=== PATIENT | male | born 1945 | race Caucasian/White ===

== ENCOUNTER 2024-05-22 12:36 | Emergency (ER) | payer OTHER ==
--- NOTE | 2024-05-22 13:09 | ED ---
General Adult HPI - General Chief complaint: Psychiatric Symptoms Stated complaint: Mental Health Time Seen by Provider: 05/22/24 12:41 Source: patient, EMS, RN notes reviewed Mode of arrival: EMS Limitations: no limitations - History of Present Illness Initial comments: Patient is an 78-year-old male present to the emergency department for mental health evaluation. Patient states he made a regretful statement when questioned if he had thoughts of self-harm at the nursing facility. Patient stated that he had the ability to do so secondary to having access to a fork and knife daily. Patient states he did not mean this to come across as a threat and does not have suicidal thoughts. No homicidal thoughts. No hallucinations. No new physical complaints. No alcohol or street drug use. - Related Data Home Medications Medication Instructions Recorded Confirmed ALPRAZolam [Xanax] 0.5 mg PO Q24H PRN 05/22/24 05/22/24 Acetaminophen Tab [Tylenol] 650 mg PO Q6H PRN MDD 3 grams 05/22/24 05/22/24 Acetaminophen [Tylenol] 650 mg PO BID MDD 3 gram 05/22/24 05/22/24 Albuterol Nebulized [Ventolin 2.5 mg INHALATION RT-Q6H PRN 05/22/24 05/22/24 Nebulized] Albuterol Sulfate [Albuterol 2 puff INHALATION RT-Q6H PRN 05/22/24 05/22/24 Sulfate Hfa] Atorvastatin Calcium [Lipitor] 40 mg PO HS 05/22/24 05/22/24 Cholecalciferol [Vitamin D3 (25 50 mcg PO DAILY 05/22/24 05/22/24 Mcg = 1000 Iu)] DULoxetine HCL [Cymbalta] 60 mg PO DAILY 05/22/24 05/22/24 Divalproex Sodium [Depakote] 500 mg PO BID 05/22/24 05/22/24 Ferrous Sulfate [Feosol] 325 mg PO DAILY 05/22/24 05/22/24 Finasteride [Proscar] 5 mg PO DAILY 05/22/24 05/22/24 Fluticasone/Umeclidin/Vilanter 1 puff INHALATION RT-DAILY 05/22/24 05/22/24 [Trelegy Ellipta 200-62.5-25] Furosemide [Lasix] 20 mg PO DAILY 05/22/24 05/22/24 Gabapentin [Neurontin] 400 mg PO HS 05/22/24 05/22/24 Isosorbide Mononitrate ER [Imdur] 30 mg PO DAILY 05/22/24 05/22/24 Magnesium Oxide [Mag-Ox] 400 mg PO DAILY 05/22/24 05/22/24 Melatonin 10 mg PO HS 05/22/24 05/22/24 Memantine [Namenda] 10 mg PO BID 05/22/24 05/22/24 Multivitamins, Thera [Multivitamin 1 tab PO DAILY 05/22/24 05/22/24 (formulary)] Psyllium Husk [Konsyl] 1 tsp PO BID 05/22/24 05/22/24 Sennosides/Docusate Sodium 1 tab PO BID 05/22/24 05/22/24 [Senna-S 8.6-50 mg Tablet] Tamsulosin HCl [Flomax] 0.8 mg PO PC-SUPPER 05/22/24 05/22/24 amLODIPine [Norvasc] 10 mg PO DAILY 05/22/24 05/22/24 bisacodyL [Dulcolax] 5 mg PO DAILY PRN 05/22/24 05/22/24 carvediloL [Coreg] 6.25 mg PO BID 05/22/24 05/22/24 levETIRAcetam [Keppra] 500 mg PO Q12HR 05/22/24 05/22/24 lisinopriL [Prinivil] 20 mg PO DAILY 05/22/24 05/22/24 rOPINIRole HCL [Requip] 3 mg PO BID 05/22/24 05/22/24 Allergies Allergy/AdvReac Type Severity Reaction Status Date / Time No Known Allergies Allergy Verified 05/22/24 13:41 Review of Systems ROS Statement: Those systems with pertinent positive or pertinent negative responses have been documented in the HPI. ROS Other: All systems not noted in ROS Statement are negative. Constitutional: Denies: fever Eyes: Denies: eye pain ENT: Denies: ear pain Respiratory: Denies: cough Cardiovascular: Denies: chest pain Endocrine: Denies: fatigue Gastrointestinal: Denies: abdominal pain Musculoskeletal: Denies: back pain Skin: Denies: rash Psychiatric: Reports: as per HPI Past Medical History Past Medical History: Dementia, Hyperlipidemia Past Surgical History: No Surgical Hx Reported Past Psychological History: Anxiety, Depression Smoking Status: Former smoker Past Alcohol Use History: None Reported Past Drug Use History: Marijuana General Exam Limitations: no limitations General appearance: alert, in no apparent distress Head exam: Present: normocephalic Eye exam: Present: normal appearance Neck exam: Present: normal inspection Respiratory exam: Present: normal lung sounds bilaterally Cardiovascular Exam: Present: regular rate, normal rhythm GI/Abdominal exam: Present: soft. Absent: tenderness Extremities exam: Present: normal inspection Neurological exam: Present: alert Psychiatric exam: Present: normal affect, normal mood Skin exam: Present: normal color Course Vital Signs 05/22/24 05/22/24 12:39 15:04 Temperature 97.5 F L Pulse Rate 51 L Respiratory 18 Rate Blood Pressure 212/80 197/81 O2 Sat by Pulse 98 Oximetry Medical Decision Making - Medical Decision Making Was pt. sent in by a medical professional or institution (, PA, [employer], urgent care, hospital, or half-way...) When possible be specific @ -Sent from half-way Did you speak to anyone other than the patient for history (EMS, parent, family, police, friend...)? What history was obtained from this source @ -No Did you review nursing and triage notes (agree or disagree)? Why? @ -I reviewed and agree with nursing and triage notes Were old charts reviewed (outside hosp., previous admission, EMS record, old EKG, old radiological studies, urgent care reports/EKG's, half-way records)? Report findings @ -No old charts were reviewed Differential Diagnosis (chest pain, altered mental status, abdominal pain women, abdominal pain men, vaginal bleeding, weakness, fever, dyspnea, syncope, headache, dizziness, GI bleed, back pain, seizure, CVA, palpatations, mental health, musculoskeletal)? @ -Differential Mental Health Depression, anxiety, bipolar, psychosis, schizophrenia, borderline personality, situational depression, adjustment disorder, behavioral disorder, brain tumor, malingering, substance abuse, encephalopathy, medication reaction, dementia, hypothyroidism, degenerative neurologic disorder, lupus.... This is not meant to be all-inclusive list EKG interpreted by me (3pts min.). @ -As above X-rays interpreted by me (1pt min.). @ -None done CT interpreted by me (1pt min.). @ -None done U/S interpreted by me (1pt. min.). @ -None done What testing was considered but not performed or refused? (CT, X-rays, U/S, labs)? Why? @ -None What meds were considered but not given or refused? Why? @ -None Did you discuss the management of the patient with other professionals (professionals i.e. , PA, [employer], lab, RT, psych nurse, social human services assistants, paper tube grader, teacher, development officer, case consultant)? Give summary @ -Discussed case with social workers mental health with plans for discharge Was smoking cessation discussed for >3mins.? @ -No Was critical care preformed (if so, how long)? @ -No Were there social determinants of health that impacted care today? How? (Homelessness, low income, unemployed, alcoholism, drug addiction, transportation, low edu. Level, literacy, decrease access to med. care, residential, rehab)? @ -No Was there de-escalation of care discussed even if they declined (Discuss DNR or withdrawal of care, Hospice)? DNR status @ -No What co-morbidities impacted this encounter? (DM, HTN, Smoking, COPD, CAD, Cancer, CVA, ARF, Chemo, Hep., AIDS, mental health diagnosis, sleep apnea, morbid obesity)? @ -None Was patient admitted / discharged? Hospital course, mention meds given and route, prescriptions, significant lab abnormalities, going to OR and other pertinent info. @ -Patient presents with statement that he could harm himself however denies any ideation and regrets stating this. Patient was seen by mental health who does not feel patient needs psychiatric admission and patient will be discharged Undiagnosed new problem with uncertain prognosis? @ -No Drug Therapy requiring intensive monitoring for toxicity (Heparin, Nitro, Insulin, Cardizem)? @ -No Were any procedures done? @ -No Diagnosis/symptom? @ -Adjustment disorder Acute, or Chronic, or Acute on Chronic? @ -Acute Uncomplicated (without systemic symptoms) or Complicated (systemic symptoms)? @ -Default Side effects of treatment? @ -No Exacerbation, Progression, or Severe Exacerbation? @ -No Poses a threat to life or bodily function? How? (Chest pain, [place], [place], pneumonia, PE, COPD, DKA, ARF, appy, cholecystitis, CVA, Diverticulitis, Homicidal, Suicidal, threat to staff... and all critical care pts) @ -No - Lab Data Lab Results 05/22/24 Range/Units 13:18 Urine Opiates Screen Not Detected (NotDetected) Ur Oxycodone Screen Not Detected (NotDetected) Urine Methadone Screen Not Detected (NotDetected) Ur Barbiturates Screen Not Detected (NotDetected) U Tricyclic Antidepress Not Detected (NotDetected) Ur Phencyclidine Scrn Not Detected (NotDetected) Ur Amphetamines Screen Not Detected (NotDetected) U Methamphetamines Scrn Not Detected (NotDetected) U Benzodiazepines Scrn Not Detected (NotDetected) Urine Cocaine Screen Not Detected (NotDetected) U Marijuana (THC) Screen Not Detected (NotDetected) Disposition Clinical Impression: Adjustment disorder Disposition: HOME SELF-CARE Condition: Stable Instructions (If sedation given, give patient instructions): Mood Disorders (ED) Additional Instructions: Please do follow-up with your primary care physician in the next day or 2 for re check. Return for thoughts of self-harm, suicidal statements, worsening symptoms or other concerns. Is patient prescribed a controlled substance at d/c from ED?: No Referrals: Hellen Fisher DO [Primary Care Provider] - 1-2 days Time of Disposition: 15:36
[2024-05-22 13:42] LABS: Amphetamine Screen,Urine Not Detected (NotDetected); Barbiturate Screen,Urine Not Detected (NotDetected); Benzodiazepines Screen,Urine Not Detected (NotDetected); Cocaine Screen,Urine Not Detected (NotDetected); Methadone Screen, Urine Not Detected (NotDetected); Opiate Screen,Urine Not Detected (NotDetected); Oxycodone Screen, Urine Not Detected (NotDetected); Phencyclidine Screen,Urine Not Detected (NotDetected); Tricyclic Antidepressant,Urine Not Detected (NotDetected); Urn Cannabinoid Scrn Not Detected (NotDetected)
[2024-05-22] MEDS: lisinopriL 10 MG TAB PO STA (15:17)
[2024-05-22 15:53] VITALS: BP 194/69; PULSE 52; RESP 16; TEMP 97.6
== END 2024-05-22 16:19 | disposition home or self-care (01) ==
LOC: EC 12:36
CPT/HCPCS: 80306; 82075; 99285